=== PATIENT | female | born 1985 | race Caucasian/White ===

== ENCOUNTER 2016-08-02 08:23 | Emergency (ER) | payer OTHER ==
--- NOTE | 2016-08-02 10:15 | DIAGNOSTIC IMAGING REPORT ---
PROCEDURE: XR CHEST 1 VIEW INDICATION: SHORTNESS OF BREATH TECHNIQUE: Portable AP view chest 02/24/2012 COMPARISON: None. FINDINGS: Lungs are clear. Heart and mediastinum are normal. Thorax is normal. IMPRESSION: 1. Negative chest.
--- NOTE | 2016-08-02 10:26 | DIAGNOSTIC IMAGING REPORT ---
PROCEDURE: US VENOUS - BILATERAL EXT INDICATION: RECENT TRAVEL. CHEST PAIN. SOB TECHNIQUE: Color Doppler duplex imaging of the deep and superficial venous system without and with compression. COMPARISON: None. FINDINGS: RIGHT LOWER EXTREMITY: Deep and superficial venous system of the right lower extremity is within normal limits. There is no evidence of deep vein thrombosis or superficial thrombophlebitis. LEFT LOWER EXTREMITY: Deep and superficial venous system of the left lower extremity is within normal limits. There is no evidence of deep vein thrombosis or superficial thrombophlebitis. IMPRESSION: 1. Negative venous ultrasound of the bilateral lower extremities.
--- NOTE | 2016-08-02 11:35 | ED NURSING NOTES ---
Clinical Report - Nurses [facility] [address] [place] [address] 08/02/2016 8:28 Patient: ANETTE VALENUZELA TRIAGE Triage time 08:42. Acuity: LEVEL 3. Chief Complaint: CHEST PAIN. --08:45 China Sol R.N. 08:41 08/02/16. BP: 147/96. HR: 77. RR: 20. O2 saturation: 100%. Temp: 98.2 F. Pain level now: 09/20. --08:45 China Sol R.N. Weight: 83.4 kg stated. Height/Length: 67 inches Per Patient. BMI: 28.8. --08:42 China Sol R.N. Medications None. --08:43 China Sol R.N. Allergies No Known Drug Allergy. --08:43 China Sol R.N. History Arrived by private vehicle. Historian: patient. This started yesterday. ( Started yesterday after 3-hour drive, worsening. No recent surgeries or control.). She has had difficulty breathing. PAST MEDICAL HX: Last normal menstrual period- July 09 2016. SOCIAL HX: Light tobacco smoker- less than 1/2 a pack per day. Alcohol use; consumes beer occasionally. History of heavy drug use: marijuana. No infectious disease exposure. ABUSE ASSESSMENT: No report of abuse. SELF HARM ASSESSMENT: A self harm assessment was performed. The patient answered "no" to the question "Do you have thoughts of harming or killing yourself?". --08:45 China Sol R.N. The patient has had difficulty breathing. --08:53 China Sol R.N. PAST MEDICAL HX: ( Von Wildebrand's disease Dx as a child.). --08:55 China Sol R.N. PROBLEMS: UTI - Urinary Tract Infection. --08:43 China Sol R.N. ADDITIONAL SURGERIES: Appendectomy. --08:43 China Sol R.N. Interventions ID band on patient. --08:45 China Sol R.N. NURSING PROGRESS NOTES 08:54 08/02/2016 Site #1 started via IV in the right antecubital space with an 20g angiocath; one attempt. Blood drawn: rainbow set. Labeled in the presence of the patient and sent to the lab. Saline lock flushed with 10 mL saline. --08:54 China Sol R.N. cvicu nurse, pulse oximeter and NIBP monitor placed on patient. Reassurance given. Call light placed in reach. Patient waiting for evaluation. --08:55 China Sol R.N. 10:01 08/02/16. BP: 130/83. HR: 79. RR: 18. O2 saturation: 98%. --10:01 China Sol R.N. ( pt. resting quietly. No needs at this time. Call light in reach.). --10:02 China Sol R.N. 09:41- late entry - ultrasound in room. --10:03 China Sol R.N. 10:05 08/02/2016 GI COCKTAIL WHITE (Simethicone) PO Oral Suspension 50 mL given. Allergies verified and confirmed 5 rights. --10:05 China Sol R.N. ( Pt. reports no improvement with GI cocktail. MD notified.). --10:22 China Sol R.N. 10:32 08/02/2016 Toradol IVP 30 mg given over 2 minute(s) via site #1. Allergies verified and confirmed 5 rights. IV patency established. IV site checked: no pain, redness, or swelling. IV flushed thoroughly pre- and post-medication administration. --10:33 China Sol R.N. 11:41 08/02/2016 Toradol IVP Response: pain is improving. Symptoms have improved the patient feels better. --11:41 China Sol R.N. DISPOSITION / DISCHARGE Cardiac rhythm: normal sinus rhythm. Departure time: 1140. Condition at departure: improved and stable. No learning barriers present. Discharge instructions provided and reviewed with the patient and family. Reviewed warnings (S/S to return to ED or call 911 given to the patient.). Reviewed medication(s) side effects information. Prescription(s) given to the patient. Patient verbalized understanding. Written instructions provided in Swedish. The patient was discharged by the physician. She was discharged home and accompanied by parent. She left the Emergency Department ambulatory and via private vehicle. Parent driving. --11:40 China Sol R.N. 11:39 08/02/16. BP: 128/58. HR: 79. RR: 16. O2 saturation: 100%. Pain level now: 07/21. --11:40 China Sol R.N. Locked/Released at 08/04/2016 18:45 by China Sol R.N.
--- NOTE | 2016-08-02 11:35 | ED ORDER SUMMARY ---
..... Patient: ANETTE VALENZUELA OrderSheet [facility] VisitID: [id number] [place] [address] 31y, F Registration Date/Time: 08/02/2016 ORDER SHEET Weight: 83.4 kg (stated) Allergies: No Known Drug Allergy GENERAL ORDERS: [employer] (Continuous) (CP and SOB) (:08/02/2016 Brigitte Rao) (Ack 9:26 LMuller) (9:47 SStone R.N.) Chest 1V Urgent (:08/02/2016 Brigitte Rao) (Ack 9:26 LMuller) US Venous Bilat Urgent (08/02/2016 Brigitte Rao) (Ack 9:26 LMuller) CBC w Diff Urgent (:08/02/2016 Brigitte Rao) (Ack 9:26 LMuller) (9:47 SStone R.N.) CMP Urgent (:08/02/2016 Brigitte Rao) (Ack 9:26 LMuller) (9:47 SStone R.N.) PT with INR Urgent (:08/02/2016 Brigitte Rao) (Ack 9:26 LMuller) (9:47 SStone R.N.) D-Dimer Urgent (:08/02/2016 Brigitte Rao) (Ack 9:26 LMuller) (9:47 SStone R.N.) Troponin-I Urgent (:08/02/2016 Brigitte Rao) (Ack 9:26 LMuller) (9:47 SStone R.N.) Urine Urgent (:08/02/2016 Brigitte Rao) (Ack 9:26 LMuller) (9:47 SStone R.N.) Pulse oximeter (:08/02/2016 Brigitte Rao) (Ack 9:26 LMuller) (9:47 SStone R.N.) MEDICATION ORDERS: GI Cocktail WHITE PO 30 mL (NOW) (09:50 08/02/2016 Brigitte Roa) (Ack 9:56 SStone R.N.) (10:05 SStone R.N.) IV FLUIDS: IV Saline Lock (09:24 08/02/2016 Brigitte Rao) (Ack 9:27 SStone R.N.) Toradol IV 30 mg (NOW) (10:26 08/02/2016 Brigitte Rao) (Ack 10:28 SStone R.N.) (10:33 SStone R.N.) ORDER SHEET NOTES: [Electronically signed by China Sol R.N. (18:45 08/04/2016)] [Electronically signed by Zeyad Montiel Dr. (04:45 08/07/2016)] [Electronically locked/signed by China Sol R.N. (18:45 08/04/2016)]
--- NOTE | 2016-08-02 11:35 | ED CLINICAL REPORT ---
Clinical Report - Physicians/Mid Levels [facility] [address] [place] [address] 08/02/2016 8:28 Patient: ANETTE VALENZUELA Time Seen: 0902; initial patient contact. Arrived- By private vehicle. Historian- patient. HISTORY OF PRESENT ILLNESS Chief Complaint: CHEST PAIN. At its maximum, severity described as moderate. When seen in the E.D., severity described as moderate. Modifying factors- worsened by deep breaths. Not relieved by anything. This started yesterday and is still present (unchanged). It was abrupt in onset and has been constant but is not gone now. Onset during rest. It is described as located in the central chest area and radiating to the left arm. No nausea, vomiting or diaphoresis. (no hemoptysis, unilateral leg swelling, recent surgery/trauma). She has had difficulty breathing. Similar symptoms previously: None. Recent medical care: Not recently seen/assessed. REVIEW OF SYSTEMS No pedal edema or calf pain. All systems otherwise negative, except as recorded above. PAST HISTORY See nurses notes. Denies the following risk factors for DVT/PE - history of DVT and pulmonary embolism, recent NE, congestive heart failure and cancer. Denies the following risk factors for DVT/PE - clotting disorder, estrogens, obesity, immobility and advanced in age. Denies the following risk factors for DVT/PE - vena cava filter. SOCIAL HISTORY Smoker- current status unknown. No alcohol use or drug use. Recent travel- (long car ride ~ 3 hrs). Is a local resident. FAMILY HISTORY +fam hx of Von Willebran's disease. ADDITIONAL NOTES The nursing notes have been reviewed. PHYSICAL EXAM Vital Signs: 08/02/2016 08:41 BP: 147/96. HR: 77. RR: 20. O2 saturation: 100%. Temp: 98.2 F. Pain level now: 7/10. Blood pressure normal. Oxygen saturation normal. Appearance: Alert. Oriented X3. No acute distress. Eyes: Pupils equal, round and reactive to light. Eyes normal inspection. No scleral icterus or pale conjunctivae. ENT: Ears normal. Nose normal. Pharynx normal. Neck: Normal inspection. Neck supple. CVS: Normal heart rate and rhythm. Heart sounds normal. Pulses normal. Respiratory: No respiratory distress. Breath sounds normal. Chest nontender. No rales, rhonchi or wheezes. Abdomen: Soft and nontender. Bowel sounds normal. Skin: Skin warm and dry. Normal skin color. No rash. Normal skin turgor. Extremities: Extremities exhibit normal ROM. No lower extremity edema. Neuro: Oriented X 3. No motor deficit. No sensory deficit. LABS, X-RAYS, AND EKG EKG: No acute ischemia. Normal EKG. Normal sinus rhythm. Rate: 77. Normal P waves. Normal JOSE. Normal QRS complex. Normal axis. Normal ST and T waves, QT and QTc. early repol. no significant NC depression. normal sinus. The study has been interpreted contemporaneously. The study has been independently viewed by me. The EKG appears to be a good tracing. Chest X-ray: (PROCEDURE: XR CHEST 1 VIEW INDICATION: SHORTNESS OF BREATH TECHNIQUE: Portable AP view chest 02/24/2012 COMPARISON: None. FINDINGS: Lungs are clear. Heart and mediastinum are normal. Thorax is normal. IMPRESSION: 1. Negative chest.). Views: AP (portable). The X-rays were independently viewed by me and interpreted by the radiologist. The X-rays were discussed with the radiologist (via pacs). Duplex Ultrasound: Right and left lower extremity study. Negative results. The exam was performed by a special effects technician. The study was independently viewed by me and interpreted by the radiologist. The study was discussed with the radiologist (via pacs). Laboratory Tests: CBC w Diff: (REGULO: 08/02/2016 08:55) ( MsgRcvd 08/02/2016 09:33) Final results Test Result Flag Units (Reference) WHITE BLOOD COUNT 12.9 H K/uL (4.5-11.5) RED BLOOD COUNT 4.39 M/uL (4.00-5.20) HEMOGLOBIN 13.6 gm/dL (12.0-16.0) HEMATOCRIT 39.7 % (36.0-46.0) MEAN CELL VOLUME 90 fL (80-100) MEAN CORPUSCULAR HGB 31 pg (26-34) MEAN CORPUSCULAR HGB CONC 34 g/dL (31-37) RED CELL DISTRIBUTION WIDTH 13.4 % (11.6-14.8) PLATELET COUNT 239 K/uL (150-400) NEUTROPHIL % 80.2 H % (50-75) LYMPH % 11.3 L % (25-40) MONO % 7.2 % (3-14) EOSINOPHIL % 1.0 % (0-4) BASOPHIL % 0.3 % (0-2) PT with INR: (REGULO: 08/02/2016 08:55) ( [facility] 09[facility]45) Final results Test Result Flag Units (Reference) INR 0.9 (0.8-1.2) Low Intensity Therapy: INR 1.5-2.0 PT range 18.5-23.1Mod.Intensity Therapy: INR 2.0-3.0 PT range 23.1-31.5High Intensity Therapy: INR 2.5-3.5 PT range 27.4-35.5High Intensity Therapy 2: INR 3.0-4.0 PT range 31.5-39.3 D-DIMER QUANTITATIVE < 0.27 L ug/mLFEU (0.27-0.52) The primary value of this quantitative assay relates toits negative predictive value (i.e. exclusion) of pulmonaryembolism/deep vein thrombosis/DIC.Elevated levels of d-dimer may also occur with:, age, cancer, inflammation, liver disease,post-op, infection, hematoma, coronary disease, peripheralarteriopathy, bleeding disorders and thrombolytic treatment.Results should be correlated with other clinical andradiological data.Testing Methodology: Latex Immunoassay CMP: (REGULO: 08/02/2016 08:55) ( MsgRcvd 08/02/2016 09:58) Final results Test Result Flag Units (Reference) GLUCOSE 102 mg/dL (70-110) BUN 8 mg/dL (7-18) CREATININE 0.6 mg/dL (0.6-1.3) Estimated GFR >60 mL/min Estimated GFR- >60 mL/min Note: Persistent reduction over 3 months in eGFR<60 mL/min/1.73 m2 defines CKD. Patients with eGFR values>=60 mL/min/1.73 m2 may also have CKD if evidence ofpersistent proteinuria. Additional information may be foundat www.kidney.org. SODIUM 140 mmol/L (136-145) POTASSIUM 4.1 mmol/L (3.5-5.1) CHLORIDE 105 mmol/L (98-107) CARBON DIOXIDE 24 mmol/L (21-32) CALCIUM 8.5 mg/dL (8.5-10.1) TOTAL PROTEIN 7.2 g/dL (6.4-8.2) ALBUMIN 3.8 g/dL (3.3-5.0) BILIRUBIN, TOTAL 1.0 mg/dL (0.0-1.0) ALKALINE PHOSPHATASE 90 U/L (46-116) AST (SGOT) 15 U/L (15-37) ALT (SGPT) 20 U/L (12-78) TROPONIN I <0.05 ng/mL (0.00-1.5) TROPONIN REFERENCE RANGE:<0.1 NEGATIVE0.1-1.5 INDETERMINANT>1.5 POSITIVE . PROGRESS AND PROCEDURES Course of Care: the patient is a pleasant 31-year-old female with recent long car and presented for evaluation ofshortness of breath. Differential diagnosis at this time includes pulmonary embolism, pneumonia, spontaneous pneumothorax. Patient is agreeable to the treatment plan. Patient be evaluated with a chest x-ray as well as EKG and laboratory studies as well as a d-dimer. Also be evaluated the patient's lower extremities for any signs of DVT. Work up is noted for the findings above. Patient's blood blood cell count is noted to be 12.9. No acute abnormalities noted on the patient's chest x-ray EKG, or ultrasound. D-dimer is noted to be negative. Because of the patient's negative ultrasound and normal d-dimer, do not feel patient has a pulmonary embolism. Patient also has been successfully evaluated for a DVT does not need further evaluation for DVT at this time. Discussed with the patient workup here in the emergency department including diagnosis, home care, follow-up, and return precautions. All questions have been answered. The patient expressed understanding of these instructions and was agreeable to them. Patient is stable outpatient candidate. I feel further workup in the emergency department is required or admission to the hospital. Disposition: Discharged. Condition: good. CLINICAL IMPRESSION Chest pain characterized as "pressure" .12 lead EKG performed. (right sided). INSTRUCTIONS Off work today, tomorrow. Warnings: GENERAL WARNINGS: Return or contact your physician immediately if your condition worsens or changes unexpectedly, if not improving as expected, or if other problems arise. SPECIFICALLY, return if you develop chest, neck, jaw, shoulder, arm, or back pain, difficulty breathing, a fluttering sensation in your chest, lightheadedness, fainting, excessive fatigue, or sudden sweating. Your Current Medications: CONTINUE TAKING THE FOLLOWING MEDICATIONS: None*. Prescription Medications: Motrin 600 mg tablets: take 1 tablet orally every 6 hours as needed for pain, stiffness or swelling. Dispense thirty (30). No refill. Substitution is permissible. (take with food) Follow-up: Return to the emergency department as needed. Follow up with your doctor in three days. Reason for referral: recheck today's concerns. Summary of care provided to patient via paper. Screening today revealed the patient's blood pressure to be in the normal range. The patient should follow up with a primary care provider for blood pressure management. Understanding of the discharge instructions verbalized by patient. (Electronically signed by Zeyad Montiel Dr. 08/07/2016 4:45)
--- NOTE | 2016-08-02 11:35 | ED ORDER SUMMARY ---
..... Patient: ANETTE VALENZUELA OrderSheet [facility] VisitID: [id number] [place] [address] 31y, F Registration Date/Time: 08/02/2016 ORDER SHEET Weight: 83.4 kg (stated) Allergies: No Known Drug Allergy GENERAL ORDERS: [employer] (Continuous) (CP and SOB) (:08/02/2016 Brigitte Rao) (Ack 9:26 LMuller) (9:47 SStone R.N.) Chest 1V Urgent (:08/02/2016 Brigitte Rao) (Ack 9:26 LMuller) US Venous Bilat Urgent (08/02/2016 Brigitte Rao) (Ack 9:26 LMuller) CBC w Diff Urgent (:08/02/2016 Brigitte Rao) (Ack 9:26 LMuller) (9:47 SStone R.N.) CMP Urgent (:08/02/2016 Brigitte Rao) (Ack 9:26 LMuller) (9:47 SStone R.N.) PT with INR Urgent (:08/02/2016 Brigitte Rao) (Ack 9:26 LMuller) (9:47 SStone R.N.) D-Dimer Urgent (:08/02/2016 Brigitte Rao) (Ack 9:26 LMuller) (9:47 SStone R.N.) Troponin-I Urgent (:08/02/2016 Brigitte Rao) (Ack 9:26 LMuller) (9:47 SStone R.N.) Urine Urgent (:08/02/2016 Brigitte Rao) (Ack 9:26 LMuller) (9:47 SStone R.N.) Pulse oximeter (:08/02/2016 Brigitte Rao) (Ack 9:26 LMuller) (9:47 SStone R.N.) MEDICATION ORDERS: GI Cocktail WHITE PO 30 mL (NOW) (09:50 08/02/2016 Brigitte Rao) (Ack 9:56 SStone R.N.) (10:05 SStone R.N.) IV FLUIDS: IV Saline Lock (09:24 08/02/2016 Brigitte Rao) (Ack 9:27 SStone R.N.) Toradol IV 30 mg (NOW) (10:26 08/02/2016 Brigitte Rao) (Ack 10:28 SStone R.N.) (10:33 SStone R.N.) ORDER SHEET NOTES: [Electronically signed by China Sol R.N. (18:45 08/04/2016)] [Electronically signed by Zeyad Montiel Dr. (04:45 08/07/2016)] [Electronically locked/signed by China Sol R.N. (18:45 08/04/2016)]
--- NOTE | 2016-08-02 11:35 | ED NURSING NOTES ---
Clinical Report - Nurses [facility] [address] [place] [address] 08/02/2016 8:28 Patient: ANETTE VALENZUELA TRIAGE Triage time 08:42. Acuity: LEVEL 3. Chief Complaint: CHEST PAIN. --08:45 China Sol R.N. 08:41 08/02/16. BP: 147/96. HR: 77. RR: 20. O2 saturation: 100%. Temp: 98.2 F. Pain level now: 09/20. --08:45 China Sol R.N. Weight: 83.4 kg stated. Height/Length: 67 inches Per Patient. BMI: 28.8. --08:42 China Sol R.N. Medications None. --08:43 China Sol R.N. Allergies No Known Drug Allergy. --08:43 China Sol R.N. History Arrived by private vehicle. Historian: patient. This started yesterday. ( Started yesterday after 3-hour drive, worsening. No recent surgeries or control.). She has had difficulty breathing. PAST MEDICAL HX: Last normal menstrual period- July 09 2016. SOCIAL HX: Light tobacco smoker- less than 1/2 a pack per day. Alcohol use; consumes beer occasionally. History of heavy drug use: marijuana. No infectious disease exposure. ABUSE ASSESSMENT: No report of abuse. SELF HARM ASSESSMENT: A self harm assessment was performed. The patient answered "no" to the question "Do you have thoughts of harming or killing yourself?". --08:45 China Sol R.N. The patient has had difficulty breathing. --08:53 China Sol R.N. PAST MEDICAL HX: ( Von Wildebrand's disease Dx as a child.). --08:55 China Sol R.N. PROBLEMS: UTI - Urinary Tract Infection. --08:43 China Sol R.N. ADDITIONAL SURGERIES: Appendectomy. --08:43 China Sol R.N. Interventions ID band on patient. --08:45 China Sol R.N. NURSING PROGRESS NOTES 08:54 08/02/2016 Site #1 started via IV in the right antecubital space with an 20g angiocath; one attempt. Blood drawn: rainbow set. Labeled in the presence of the patient and sent to the lab. Saline lock flushed with 10 mL saline. --08:54 China Sol [address]N. court monitor, pulse oximeter and NIBP monitor placed on patient. Reassurance given. Call light placed in reach. Patient waiting for evaluation. --08:55 China Sol R.N. 10:01 08/02/16. BP: 130/83. HR: 79. RR: 18. O2 saturation: 98%. --10:01 China Sol R.N. ( pt. resting quietly. No needs at this time. Call light in reach.). --10:02 China Sol R.N. 09:41- late entry - ultrasound in room. --10:03 China Sol R.N. 10:05 08/02/2016 GI COCKTAIL WHITE (Simethicone) PO Oral Suspension 50 mL given. Allergies verified and confirmed 5 rights. --10:05 China Sol R.N. ( Pt. reports no improvement with GI cocktail. MD notified.). --10:22 China Sol R.N. 10:32 08/02/2016 Toradol IVP 30 mg given over 2 minute(s) via site #1. Allergies verified and confirmed 5 rights. IV patency established. IV site checked: no pain, redness, or swelling. IV flushed thoroughly pre- and post-medication administration. --10:33 China Sol R.N. 11:41 08/02/2016 Toradol IVP Response: pain is improving. Symptoms have improved the patient feels better. --11:41 China Sol R.N. DISPOSITION / DISCHARGE Cardiac rhythm: normal sinus rhythm. Departure time: 1140. Condition at departure: improved and stable. No learning barriers present. Discharge instructions provided and reviewed with the patient and family. Reviewed warnings (S/S to return to ED or call 911 given to the patient.). Reviewed medication(s) side effects information. Prescription(s) given to the patient. Patient verbalized understanding. Written instructions provided in Tajik. The patient was discharged by the physician. She was discharged home and accompanied by parent. She left the Emergency Department ambulatory and via private vehicle. Parent driving. --11:40 China Sol R.N. 11:39 08/02/16. BP: 128/58. HR: 79. RR: 16. O2 saturation: 100%. Pain level now: 07/21. --11:40 China Sol R.N. Locked/Released at 08/04/2016 18:45 by China Sol R.N.
--- NOTE | 2016-08-07 04:45 | ED MAR SUMMARY ---
..... Medication Administration Record [facility] [address] [place] [address] Patient: ANETTE VALENZUELA Visit ID: [id number] 31y, F Weight: 83.4 kg Height/Length: 67 in BMI: 28.8 ALLERGIES: No Known Drug Allergy Given 10:05 08/02/2016 China Sol RVianca Medication Administered: GI COCKTAIL WHITE [PO] (SIMETHICONE), Dose: 50 mL Oral Suspension PO. Medication Ordered: GI Cocktail WHITE PO 30 mL (NOW). Given 10:32 08/02/2016 China Sol R.N. Medication Administered: TORADOL [IVP], Dose: 30 mg IVP over 2 minute(s), Site: #1 right AC. Medication Ordered: Toradol IV 30 mg (NOW).
--- NOTE | 2016-08-07 04:45 | ED DISCHARGE INSTRUCTIONS ---
Patient: ANETTE VALENZUELA General Instructions [facility] VisitID: [id number] [place] [address] 31y, F Registration Date/Time: 08/02/2016 Chest pain characterized as "pressure" .12 lead EKG performed. (right sided). INSTRUCTIONS Off work today, tomorrow. Warnings: GENERAL WARNINGS: Return or contact your physician immediately if your condition worsens or changes unexpectedly, if not improving as expected, or if other problems arise. SPECIFICALLY, return if you develop chest, neck, jaw, shoulder, arm, or back pain, difficulty breathing, a fluttering sensation in your chest, lightheadedness, fainting, excessive fatigue, or sudden sweating. Your Current Medications: CONTINUE TAKING THE FOLLOWING MEDICATIONS: None*. Prescription Medications: Motrin 600 mg tablets: take 1 tablet orally every 6 hours as needed for pain, stiffness or swelling. Dispense thirty (30). No refill. Substitution is permissible. (take with food) Follow-up: Return to the emergency department as needed. Follow up with your doctor in three days. Reason for referral: recheck today's concerns. Summary of care provided to patient via paper. Screening today revealed the patient's blood pressure to be in the normal range. The patient should follow up with a primary care provider for blood pressure management. Understanding of the discharge instructions verbalized by patient. ADDITIONAL INFORMATION Chest Pain, Uncertain Cause Chest pain can happen for a number of reasons. Sometimes the cause can not be determined. If yourcondition does not seem serious, and your pain does not appear to be coming from your heart, your doctor may recommend watching it closely. Sometimes the signs of a serious problem take more time to appear. Therefore, watch for the warning signs listed below. Home care After your visit, follow these recommendations: Rest today and avoid strenuous activity. Take any prescribed medicine as directed. Follow-up care Follow up with your doctor or this facility as instructed or if you do not start to feel better within 24 hours. Call 911 Get immediate medical attention if any of the following occur: A change in the type of pain: if it feels different, becomes more severe, lasts longer, or begins to spread into your shoulder, arm, neck, jaw or back Shortness of breath or increased pain with breathing Weakness, dizziness, or fainting Rapid heart beat Get prompt medical attention Call your doctor right away if any of the following occur: Cough with dark colored sputum (phlegm) or blood Fever of 100.4F(38C) or higher, or as directed by your health care provider Swelling, pain or redness in one leg Ibuprofen Oral tablet What is this medicine? IBUPROFEN (eye BYOO proe fen) is a non-steroidal anti-inflammatory drug (NSAID). It is used for dental pain, fever, headaches or migraines, osteoarthritis, rheumatoid arthritis, or painful monthly periods. It can also relieve minor aches and pains caused by a cold, flu, or sore throat. How should I use this medicine? Take this medicine by mouth with a glass of water. Follow the directions on the prescription label. Take this medicine with food if your stomach gets upset. Try to not lie down for at least 10 minutes after you take the medicine. Take your medicine at regular intervals. Do not take your medicine more often than directed. A special MedGuide will be given to you by the pharmacist with each prescription and refill. Be sure to read this information carefully each time. Talk to your organ grinder regarding the use of this medicine in children. Special care may be needed. What side effects may I notice from receiving this medicine? Side effects that you should report to your doctor or health professional healthcare representative as soon as possible: allergic reactions like skin rash, itching or hives, swelling of the face, lips, or tongue black or bloody stools, blood in the urine or in vomit breathing problems changes in vision chest pain general ill feeling or flu-like symptoms nausea or vomiting redness, blistering, peeling or loosening of the skin, including inside the mouth slurred speech or weakness on one side of the body stomach pain unexplained weight gain or swelling unusually weak or tired yellowing of eyes or skin Side effects that usually do not require medical attention (report to your doctor or health professional healthcare representative if they continue or are bothersome): constipation or diarrhea dizziness gas or heartburn stomach upset What may interact with this medicine? Do not take this medicine with any of the following medications: cidofovir ketorolac methotrexate pemetrexed This medicine may also interact with the following medications: alcohol aspirin diuretics lithium other drugs for inflammation like prednisone warfarin What if I miss a dose? If you miss a dose, take it as soon as you can. If it is almost time for your next dose, take only that dose. Do not take double or extra doses. Where should I keep my medicine? Keep out of the reach of children. Store at room temperature between 15 and 30 degrees C (59 and 86 degrees F). Keep container tightly closed. Throw away any unused medicine after the expiration date. What should I tell my health care provider before I take this medicine? They need to know if you have any of these conditions: asthma cigarette smoker drink more than 3 alcohol containing drinks a day heart disease or circulation problems such as heart failure or leg edema (fluid retention) high blood pressure kidney disease liver disease stomach bleeding or ulcers an unusual or allergic reaction to ibuprofen, aspirin, other NSAIDS, other medicines, foods, dyes, or preservatives or trying to get breast-feeding What should I watch for while using this medicine? Tell your doctor or healthcare professional if your symptoms do not start to get better or if they get worse. This medicine does not prevent heart attack or stroke. In fact, this medicine may increase the chance of a heart attack or stroke. The chance may increase with longer use of this medicine and in people who have heart disease. If you take aspirin to prevent heart attack or stroke, talk with your doctor or health professional healthcare representative. Do not take other medicines that contain aspirin, ibuprofen, or naproxen with this medicine. Side effects such as stomach upset, nausea, or ulcers may be more likely to occur. Many medicines available without a prescription should not be taken with this medicine. This medicine can cause ulcers and bleeding in the stomach and intestines at any time during treatment. Ulcers and bleeding can happen without warning symptoms and can cause . To reduce your risk, do not smoke cigarettes or drink alcohol while you are taking this medicine. You may get drowsy or dizzy. Do not drive, use machinery, or do anything that needs mental alertness until you know how this medicine affects you. Do not stand or sit up quickly, especially if you are an older patient. This reduces the risk of dizzy or fainting spells. This medicine can cause you to bleed more easily. Try to avoid damage to your teeth and gums when you brush or floss your teeth. You have been given the following additional information: Chest Pain, Uncertain Cause Ibuprofen Oral tablet Off work today, tomorrow. (Electronically signed by Zeyad Montiel Dr. 08/07/2016 4:45)
--- NOTE | 2016-08-07 04:45 | ED MAR SUMMARY ---
..... Medication Administration Record [facility] [address] [place] [address] Patient: ANETTE VALENZUELA Visit ID: [id number] 31y, F Weight: 83.4 kg Height/Length: 67 in BMI: 28.8 ALLERGIES: No Known Drug Allergy Given 10:05 08/02/2016 China Sol RVianca Medication Administered: GI COCKTAIL WHITE [PO] (SIMETHICONE), Dose: 50 mL Oral Suspension PO. Medication Ordered: GI Cocktail WHITE PO 30 mL (NOW). Given 10:32 08/02/2016 China Sol R.N. Medication Administered: TORADOL [IVP], Dose: 30 mg IVP over 2 minute(s), Site: #1 right AC. Medication Ordered: Toradol IV 30 mg (NOW).
--- NOTE | 2016-08-07 04:45 | ED MED RECONCILIATION SUMMARY ---
Patient: ANETTE VALENZUELA Medication Reconciliation Report [facility] VisitID: [id number] [place] [address] 31y, F Registration Date/Time: 08/02/2016 Weight: 83.4 kg Height/Length: 67 in. BMI: 28.8 ALLERGIES: No Known Drug Allergy The patient's Home Medications are listed below: NONE. The source(s) of the original Home Medication information: Not obtained. The following Medications were given to the patient in the Emergency Department: GI COCKTAIL WHITE [PO] PO 50 mL, administered: 08/02/2016 10:05:00 AM Toradol [IVP] IVP 30 mg, administered: 08/02/2016 10:32:00 AM The following Medications were prescribed to the patient: Motrin 600 mg tablets: take 1 tablet orally every 6 hours as needed for pain, stiffness or swelling. Dispense thirty (30). No refill. Substitution is permissible.(take with food) -- Zeyad Montiel Dr.
--- NOTE | 2016-08-07 04:45 | ED MED RECONCILIATION SUMMARY ---
Patient: ANETTE VALENZUELA Medication Reconciliation Report [facility] VisitID: [id number] [place] [address] 31y, F Registration Date/Time: 08/02/2016 Weight: 83.4 kg Height/Length: 67 in. BMI: 28.8 ALLERGIES: No Known Drug Allergy The patient's Home Medications are listed below: NONE. The source(s) of the original Home Medication information: Not obtained. The following Medications were given to the patient in the Emergency Department: GI COCKTAIL WHITE [PO] PO 50 mL, administered: 08/02/2016 10:05:00 AM Toradol [IVP] IVP 30 mg, administered: 08/02/2016 10:32:00 AM The following Medications were prescribed to the patient: Motrin 600 mg tablets: take 1 tablet orally every 6 hours as needed for pain, stiffness or swelling. Dispense thirty (30). No refill. Substitution is permissible.(take with food) -- Zeyad Montiel Dr.
== END 2016-08-02 11:40 | disposition home or self-care (01) ==
LOC: ED SRH 08:23
DX: R07.89 Other chest pain (principal); R06.02 Shortness of breath
CPT/HCPCS: 90100; 90616; 91556; 94060; 95059